=== PATIENT | male | born 1950 | race Asian ===

== ENCOUNTER 2018-09-26 11:52 | Emergency (ER) | payer MEDICAID, MEDICARE, OTHER ==
[~2018-09-26] VITALS: Ht 167.6 cm; Wt 72.7 kg
[2018-09-26 11:59] VITALS: Ht 167.6 cm; Wt 72.7 kg
[2018-09-26] MEDS ORDERED: LEVALBUTEROL (NEB) 1.25 MG/0.5 ML AMP INH STA ×2 (12:03→16:19)
[2018-09-26] MEDS ORDERED: METHYLPREDNISOLONE 125 MG INJ IV STA (12:03)
[2018-09-26] MEDS ORDERED: IPRATROPIUM (NEB) 0.5 MG/2.5 ML AMP INH STA ×2 (12:03→16:19)
--- NOTE | 2018-09-26 12:15 | ERD ---
ER Documentation Chief Complaint Chief Complaint SENT BY HAND QUILTER FOR SOB. 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 He went to his gun examiner for routine follow-up when he was noted to have dyspnea, therefore 911 was called and brought him to the hospital for evaluation. According EMS, O2 saturation was in the high 80s to male, treated with albuterol and 5 mg nebulizer x2 with good response. The history is limited due to language barrier, Accu-Chek was 112. He denies headache, neck pain, chest pain, abdominal pain, vomiting. He used to smoke but quit many years ago Past medical history: Chronic kidney disease on hemodialysis Wednesday and Wednesday, asthma, hypertension Past Surgical history: Left upper extremity AV fistula ROS All systems reviewed and are negative except as per history of present illness. Allergies Allergies: Coded Allergies: No Known Allergy (Unverified , 09/26/18) PMhx/Soc History of Surgery: No Anesthesia Reaction: No Hx Neurological Disorder: No Hx Respiratory Disorders: Yes (ASTHMA) Hx Cardiac Disorders: Yes (HTN) Hx Psychiatric Problems: No Hx Miscellaneous Medical Probl: Yes (ESRD ON HD) Hx Alcohol Use: No Hx Substance Use: No Hx Tobacco Use: Yes Smoking Status: Former smoker Physical Exam Vitals Vital Signs Date Temp Pulse Resp B/P (MAP) Pulse Ox O2 O2 Flow FiO2 Time Delivery Rate 09/26/18 Nasal 2 12:14 Cannula 09/26/18 68 26 98 12:12 09/26/18 Nasal 2.0 12:11 Cannula 09/26/18 97.7 65 26 155/110 100 11:59 (125) Physical Exam Const: No acute distress. Head: Atraumatic. Eyes: Normal Conjunctiva. ENT: Normal External Ears, Nose and Mouth. Neck: Full range of motion. No meningismus. Resp: Tachypneic, bilateral expiratory wheezes Cardio: Regular rate and rhythm. Abd: Soft, non distended, normal bowel sounds, non tender. Skin: No petechiae or rashes. Back: No midline or flank tenderness. Ext: No cyanosis, or edema. Neur: Awake and alert. No focal deficit Psych: Normal Mood and Affect. Result Diagram: 09/26/18 1207 09/26/18 1207 Results 24 hrs Laboratory Tests Test 09/26/18 12:07 09/26/18 12:09 White Blood Count 5.5 10^3/ul Red Blood Count 3.48 10^6/ul Hemoglobin 12.9 g/dl Hematocrit 38.3 % Mean Corpuscular Volume 110.1 fl Mean Corpuscular Hemoglobin 37.1 pg Mean Corpuscular Hemoglobin Concent 33.7 g/dl Red Cell Distribution Width 12.7 % Platelet Count 119 10^3/UL Mean Platelet Volume 11.4 fl Immature Granulocytes % 0.400 % Neutrophils % 49.4 % Lymphocytes % 27.3 % Monocytes % 17.6 % Eosinophils % 4.2 % Basophils % 1.1 % Nucleated Red Blood Cells % 0.0 /100WBC Immature Granulocytes # 0.020 10^3/ul Neutrophils # 2.7 10^3/ul Lymphocytes # 1.5 10^3/ul Monocytes # 1.0 10^3/ul Eosinophils # 0.2 10^3/ul Basophils # 0.1 10^3/ul Nucleated Red Blood Cells # 0.0 10^3/ul Prothrombin Time 12.7 Sec Prothrombin Time Ratio 1.0 INR International Normalized Ratio 0.94 Activated Partial Thromboplast Time 32.4 Sec Sodium Level 143 mmol/L Potassium Level 4.3 mmol/L Chloride Level 106 mmol/L Carbon Dioxide Level 20 mmol/L Anion Gap 17 Blood Urea Nitrogen 80 mg/dl Creatinine 9.48 mg/dl Est Glomerular Filtrat Rate mL/min 6 mL/min Glucose Level 139 mg/dl Calcium Level 9.3 mg/dl Total Bilirubin 0.2 mg/dl Direct Bilirubin 0.00 mg/dl Indirect Bilirubin 0.2 mg/dl Aspartate Amino Transf (AST/SGOT) 30 IU/L Alanine Aminotransferase (ALT/SGPT) 32 IU/L Alkaline Phosphatase 74 IU/L Troponin I 0.075 ng/ml Total Protein 6.6 g/dl Albumin 3.8 g/dl Globulin 2.80 g/dl Albumin/Globulin Ratio 1.35 POC Venous Lactate 1.1 mmol/L Current Medications Medications Dose Sig/Deyanira Start Time Status Last (Trade) Ordered Route PRN Stop Time Admin Dose Reason Admin 5 mg ONCE STAT 09/26/18 DC 09/26/18 Levalbuterol INH 12:03 09/26/18 12:10 (Xopenex 12:05 Neb) Ipratropium 2 mg ONCE STAT 09/26/18 DC 09/26/18 [employer] INH 12:03 09/26/18 12:10 (Atrovent 12:05 0.02% (Neb)) 125 mg ONCE STAT 09/26/18 DC 09/26/18 Methylprednis IV 12:03 09/26/18 12:11 olone Sodium 12:05 Succinate (Solu-Medrol) Procedures/[place] [address] Radiology Main Line: [phone] DIAGNOSTIC IMAGING REPORT Patient: CARLIN SHARMA : 1950 Age: 68 Sex: M MR #: [id number] DOS: 09/26/18 1202 Ordering MD: JOHN GREEN MD Location: E/R Room/Bed: PROCEDURE: XR Chest 1 view. CLINICAL INDICATION: Shortness of breath. Sepsis. TECHNIQUE: Single view of the chest was obtained. COMPARISON: CT September 07, 2018 and x-ray March 10, 2018 FINDINGS: Support lines and tubes: None. Mediastinum: Enlarged heart. Calcified atherosclerosis in the aorta. Lungs: Hyperexpanded lungs.Scattered atelectasis in both lungs. No consolidati ons. No pneumothorax. Osseous structures: Intact. Osteopenia. Other: None. IMPRESSION: Cardiomegaly with calcified atherosclerosis in the aorta. Scattered atelectasis in both lungs. Hyperexpanded lungs. RPTAT: AA .Nnamdi Oconnor MD, MD Date Time Electronically viewed and signed by .Nnamdi Oconnor MD, on 09/26/2018 12:40 .P/ CC: JOHN GREEN MD [id number] EKG: Read by emergency physician Rate/Rhythm: Sinus bradycardia 58 beats/min QRS, ST, T-waves: No ST elevation, no T inversion, left atrial enlargement, LAD, nonspecific T abnormality Impression: Abnormal EKG MEDICAL MAKING DECISION: The patient is a 68-year-old male, presenting with acute asthma exacerbation. He was treated with Solu-Medrol 125 mg IV, Xopenex 5 mg and Atrovent 2 mg continuous nebulizer over 1hour with good response. He remained tachypneic with mild bilateral expiratory wheezes The differential diagnoses considered include but are not limited to asthma, COPD, pneumonia, pulmonary embolus, pleural effusion, congestive heart failure. Departure Diagnosis: Primary Impression: Acute asthma exacerbation Additional Impressions: Anemia Thrombocytopenia Condition: Stable Comments I discussed the findings with the patient. I discussed the patient with Dr Lc Gayle from [facility] at 2 p , who was made aware of the lab, the treatment, the patient condition. The patient is transferred via ambulance to [facility] Disclaimer: Inadvertent spelling and grammatical errors are likely due to EHR/dictation software use and do not reflect on the overall quality of patient care. Also, please note that the electronic time recorded on this note does not necessarily reflect the actual time of the patient encounter. JOHN GREEN MD Sep 26, 2018 12:15
[2018-09-26] MEDS ORDERED: hydrALAzine 20 MG INJ IV STA (16:01)
[2018-09-26] MEDS ORDERED: hydrALAzine 20 MG INJ IV ONE ×3 (16:30→20:30)
[2018-09-26 20:26] VITALS: BP 193/86; PULSE 84; RESP 23
== END 2018-09-26 20:08 | disposition short-term general hospital (02) ==
LOC: E/R 11:52
DX: J45.901 Unspecified asthma with (acute) exacerbation (principal); D64.9 Anemia, unspecified; D69.6 Thrombocytopenia, unspecified; N18.6 End stage renal disease; I12.0 Hypertensive chronic kidney disease with stage 5 chronic kidney disease or end stage renal disease; Z87.891 Personal history of nicotine dependence; Z99.2 Dependence on renal dialysis
CPT/HCPCS: 36415; 36600; 71045; 80053; 82803; 83605; 84484; 85025; 85610; 85730; 87040; 93005; 94644; 94645; 96374; 96375; 96376; 99285; J0360; J2930